=== PATIENT | male | born 1950 | race Caucasian/White ===

== ENCOUNTER 2020-01-18 10:54 | Emergency (ER) | payer MEDICARE, OTHER ==
[2020-01-18] MEDS ORDERED: Sodium Chloride 0.9% 10 ML Syringe FLUSH PRN (12:06)
--- NOTE | 2020-01-18 12:10 | EDM.PDOC ---
ED HPI GENERAL MEDICAL PROBLEM - General Chief Complaint: Abdominal Pain Stated Complaint: UPPER STOMACH PAIN Time Seen by Provider: 01/18/20 11:14 Source of Information: Reports: Patient, RN Notes Reviewed History Limitations: Reports: No Limitations - History of Present Illness INITIAL COMMENTS - FREE TEXT/NARRATIVE: 69-year-old gentleman presents emergency department with a complaint of abdominal pain, he has had abdominal pain on and off for the last 2 months however last night it got particularly severe he cannot relate it to any food makes no difference the pain does wax and wane makes no difference if he is exerting himself or resting he has followed up with his primary care who was doing watchful waiting at this time. However the pain was so intense last night rated a 10 out of 10 he elected to present to the emergency department this morning. No nausea vomiting still passing gas does have a past surgical history of cholecystectomy and hernia repair pain is predominantly in the left upper quadrant Abdomen Pain Score (Numeric/FACES): 6 - Related Data Allergies Allergy/AdvReac Type Severity Reaction Status Date / Time Daemsyz-Hro-Iad Reductase Allergy Cannot Verified 01/18/20 11:38 Inhibitor Remember Home Meds: Home Meds Cyanocobalamin (Vitamin B-12) [B-12] 2 tab PO DAILY 01/18/20 [History] Levothyroxine 200 mg PO DAILY 01/18/20 [History] carvediloL [Carvedilol] 1 tab PO BID 01/18/20 [History] Past Medical History Cardiovascular History: Reports: Hypertension Gastrointestinal History: Reports: Diverticulosis Genitourinary History: Reports: Prostate Disorder Endocrine/Metabolic History: Reports: Hypothyroidism Oncologic (Cancer) History: Reports: Prostate - Past Surgical History Head Surgeries/Procedures: Reports: None Cardiovascular Surgical History: Reports: None GI Surgical History: Reports: Cholecystectomy, Hernia Repair/Other Male Surgical History: Reports: Prostatectomy Endocrine Surgical History: Reports: Thyroidectomy Oncologic Surgical History: Reports: None Dermatological Surgical History: Reports: None Social & Family History - Tobacco Use Smoking Status *Q: Never Smoker - Caffeine Use Caffeine Use: Reports: Coffee, Soda - Recreational Drug Use Recreational Drug Use: No ED ROS GENERAL - Review of Systems Review Of Systems: See Below Constitutional: Reports: No Symptoms HEENT: Reports: No Symptoms Respiratory: Reports: No Symptoms Cardiovascular: Reports: No Symptoms GI/Abdominal: Reports: Abdominal Pain, Flatus. Denies: Constipation, Diarrhea, Nausea, Vomiting : Reports: No Symptoms Musculoskeletal: Reports: No Symptoms ED EXAM, GI/ABD - Physical Exam Exam: See Below Exam Limited By: No Limitations General Appearance: Alert, WD/WN, No Apparent Distress Respiratory/Chest: No Respiratory Distress, Lungs Clear, Normal Breath Sounds, No Accessory Muscle Use, Chest Non-Tender Cardiovascular: Regular Rate, Rhythm, No Murmur GI/Abdominal Exam: Normal Bowel Sounds, Soft, No Organomegaly, No Distention, Tender (Tender left upper quadrant) Course - Vital Signs Last Recorded V/S: Last Vital Signs Temp 97.6 F 01/18/20 11:36 Pulse 65 01/18/20 11:36 Resp 16 01/18/20 11:36 BP 186/89 H 01/18/20 11:51 Pulse Ox 97 01/18/20 11:36 - Orders/Labs/Meds Orders: Active Orders 24 hr Category Date Time Status Peripheral IV Care [RC] . DIRECTED Care 01/18/20 12:06 Active Sodium Chloride 0.9% [Normal Saline] 1,000 ml Med 01/18/20 12:15 Active IV ASDIRECTED Sodium Chloride 0.9% [Normal Saline] 100 ml Med 01/18/20 12:30 Active IV ASDIRECTED Sodium Chloride 0.9% [Saline Flush] Med 01/18/20 12:06 Active 10 ml FLUSH ASDIRECTED PRN Peripheral IV Insertion Adult [OM.PC] Urgent Oth 01/18/20 12:06 Ordered Medication Orders Sodium Chloride (Normal Saline) 1,000 mls @ 999 mls/hr IV ASDIRECTED CINDY Last Admin: 01/18/20 12:46 Dose: 999 mls/hr Documented by: ELVIS Sodium Chloride (Normal Saline) 100 mls @ 3 mls/sec IV ASDIRECTED CINDY Last Admin: 01/18/20 14:06 Dose: 3 mls/sec Documented by: PEE Sodium Chloride (Saline Flush) 10 ml FLUSH ASDIRECTED PRN PRN Reason: Keep Vein Open Last Admin: 01/18/20 14:06 Dose: 10 ml Documented by: PEE Labs: Laboratory Tests 01/18/20 01/18/20 01/18/20 Range/Units 12:18 12:18 12:18 WBC 7.5 (4.5-11.0) K/uL RBC 5.14 (4.30-5.90) M/uL Hgb 16.0 H (12.0-15.0) g/dL Hct 46.9 (40.0-54.0) % MCV 91 (80-98) fL MCH 31 (27-31) pg MCHC 34 (32-36) % Plt Count 173 (150-400) K/uL Neut % (Auto) 70 H (36-66) % Lymph % (Auto) 16 L (24-44) % [place] % (Auto) 12 H (2-6) % Eos % (Auto) 2 (2-4) % Baso % (Auto) 0 (0-1) % Sodium 141 (140-148) mmol/L Potassium 4.3 (3.6-5.2) mmol/L Chloride 105 (100-108) mmol/L Carbon Dioxide 28 (21-32) mmol/L Anion Gap 8.0 (5.0-14.0) mmol/L BUN 16 (7-18) mg/dL Creatinine 1.1 (0.8-1.3) mg/dL Est Cr Clr Drug Dosing 75.75 mL/min Estimated GFR (MDRD) > 60 (>60) Glucose 162 H (74-106) mg/dL Lactic Acid 1.3 (0.4-2.0) mmol/L Calcium 9.0 (8.5-10.1) mg/dL Total Bilirubin 0.6 (0.2-1.0) mg/dL AST 14 L (15-37) U/L ALT 26 (12-78) U/L Alkaline Phosphatase 102 (46-116) U/L Troponin I < 0.017 (0.000-0.056) ng/mL Total Protein 6.9 (6.4-8.2) g/dL Albumin 3.9 (3.4-5.0) g/dL Globulin 3.0 (2.3-3.5) g/dL Albumin/Globulin Ratio 1.3 (1.2-2.2) Lipase 371 (73-393) U/L Urine Color (YELLOW) Urine Appearance (CLEAR) Urine pH (5.0-8.0) Ur Specific [place] (1.008-1.030) Urine Protein (NEGATIVE) mg/dL Urine Glucose (UA) (NEGATIVE) mg/dL Urine Ketones (NEGATIVE) mg/dL Urine Occult Blood (NEGATIVE) Urine Nitrite (NEGATIVE) Urine Bilirubin (NEGATIVE) Urine Urobilinogen (0.2-1.0) EU/dL Ur Leukocyte Esterase (NEGATIVE) Urine RBC (0-5) Urine WBC (0-5) Ur Epithelial Cells Urine Bacteria 01/18/20 Range/Units 13:48 WBC (4.5-11.0) K/uL RBC (4.30-5.90) M/uL Hgb (12.0-15.0) g/dL Hct (40.0-54.0) % MCV (80-98) fL MCH (27-31) pg MCHC (32-36) % Plt Count (150-400) K/uL Neut % (Auto) (36-66) % Lymph % (Auto) (24-44) % [place] % (Auto) (2-6) % Eos % (Auto) (2-4) % Baso % (Auto) (0-1) % Sodium (140-148) mmol/L Potassium (3.6-5.2) mmol/L Chloride (100-108) mmol/L Carbon Dioxide (21-32) mmol/L Anion Gap (5.0-14.0) mmol/L BUN (7-18) mg/dL Creatinine (0.8-1.3) mg/dL Est Cr Clr Drug Dosing mL/min Estimated GFR (MDRD) (>60) Glucose (74-106) mg/dL Lactic Acid (0.4-2.0) mmol/L Calcium (8.5-10.1) mg/dL Total Bilirubin (0.2-1.0) mg/dL AST (15-37) U/L ALT (12-78) U/L Alkaline Phosphatase (46-116) U/L Troponin I (0.000-0.056) ng/mL Total Protein (6.4-8.2) g/dL Albumin (3.4-5.0) g/dL Globulin (2.3-3.5) g/dL Albumin/Globulin Ratio (1.2-2.2) Lipase (73-393) U/L Urine Color Yellow (YELLOW) Urine Appearance Clear (CLEAR) Urine pH 5.5 (5.0-8.0) Ur Specific [place] >= 1.030 (1.008-1.030) Urine Protein Negative (NEGATIVE) mg/dL Urine Glucose (UA) Negative (NEGATIVE) mg/dL Urine Ketones Negative (NEGATIVE) mg/dL Urine Occult Blood Trace-intact H (NEGATIVE) Urine Nitrite Negative (NEGATIVE) Urine Bilirubin Negative (NEGATIVE) Urine Urobilinogen 0.2 (0.2-1.0) EU/dL Ur Leukocyte Esterase Negative (NEGATIVE) Urine RBC Not seen (0-5) Urine WBC Not seen (0-5) Ur Epithelial Cells Not seen Urine Bacteria Not seen Meds: Medications Generic Name Dose Route Start Last Admin Trade Name Freq PRN Reason Stop Dose Admin Sodium Chloride 1,000 mls @ 999 mls/hr 01/18/20 12:15 01/18/20 12:46 Normal Saline IV 999 mls/hr ASDIRECTED CINDY Administration Sodium Chloride 100 mls @ 3 mls/sec 01/18/20 12:30 01/18/20 14:06 Normal Saline IV 3 mls/sec ASDIRECTED CINDY Administration Sodium Chloride 10 ml 01/18/20 12:06 01/18/20 14:06 Saline Flush FLUSH 10 ml ASDIRECTED PRN Administration Keep Vein Open Discontinued Medications Generic Name Dose Route Start Last Admin Trade Name Freq PRN Reason Stop Dose Admin Iopamidol 150 ml 01/18/20 12:30 01/18/20 14:06 Isovue-300 (61%) IV 150 ml . DIRECTED CINDY Administration Sodium Chloride 10 ml 01/18/20 12:22 01/18/20 12:46 Saline Flush FLUSH 01/18/20 12:23 10 ml ONETIME ONE Administration Departure - Departure Time of Disposition: 14:53 Disposition: Home, Self-Care 01 Condition: Fair Clinical Impression: Pancreatic mass Pancreatitis Qualifiers: Chronicity: chronic Pancreatitis type: unspecified pancreatitis type Qualified Code(s): K86.1 - Other chronic pancreatitis - Discharge Information Instructions: Chronic Pancreatitis, Acute Pancreatitis, [id number] Referrals: Ted Rae NP [Primary Care Provider] - Forms: ED Department Discharge Additional Instructions: Please follow-up with your primary care for further evaluation of the mass in the pancreas, recommend clear liquid diet for the next couple days avoid fatty foods and alcohol, call return to the emergency department worsening of symptoms Sepsis Event Note (ED) - Evaluation Sepsis Screening Result: No Definite Risk - Focused Exam Vital Signs: Vital Signs Temp Pulse Resp BP Pulse Ox 01/18/20 11:51 186/89 H 01/18/20 11:36 97.6 F 65 16 208/100 H 97 01/18/20 11:10 97.6 F 65 16 208/100 H 97 - My Orders Last 24 Hours: My Active Orders 01/18/20 12:06 Peripheral IV Care [RC] . DIRECTED Sodium Chloride 0.9% [Saline Flush] 10 ml FLUSH ASDIRECTED PRN Peripheral IV Insertion Adult [OM.PC] Urgent 01/18/20 12:15 Sodium Chloride 0.9% [Normal Saline] 1,000 ml IV ASDIRECTED 01/18/20 12:30 Sodium Chloride 0.9% [Normal Saline] 100 ml IV ASDIRECTED - Assessment/Plan Last 24 Hours: My Active Orders 01/18/20 12:06 Peripheral IV Care [RC] . DIRECTED Sodium Chloride 0.9% [Saline Flush] 10 ml FLUSH ASDIRECTED PRN Peripheral IV Insertion Adult [OM.PC] Urgent 01/18/20 12:15 Sodium Chloride 0.9% [Normal Saline] 1,000 ml IV ASDIRECTED 01/18/20 12:30 Sodium Chloride 0.9% [Normal Saline] 100 ml IV ASDIRECTED Plan: Assessment Acuity = acute Site and laterality = pancreatitis Etiology = unknown Manifestations = abdominal pain Location of injury = Home Lab values = CBC, CMP, troponin, lipase all within normal limits CT scan describe acute pancreatitis above however there is a mass in the pancreas of undetermined etiology Plan I did provide him lab work results as well as a handout of his CT scan he is can follow-up with his primary care for further evaluation of the mass in the pancreas This note was dictated using [employer] voice recognition software please call with any questions on syntax or grammar.
[2020-01-18] MEDS ORDERED: Sodium Chloride 0.9% 1,000 ML IV SCH (12:15)
[2020-01-18] MEDS ORDERED: Sodium Chloride 0.9% 10 ML Syringe FLUSH ONE (12:22)
[2020-01-18] MEDS ORDERED: Iopamidol 612 MG/ML 150 ML Bottle IV SCH (12:30)
[2020-01-18] MEDS ORDERED: Sodium Chloride 0.9% 100 ML IV SCH (12:30)
--- NOTE | 2020-01-18 14:23 | CRLCT ---
INDICATION: Left upper quadrant pain. TECHNIQUE: CT of abdomen and pelvis performed after IV injection of 150 mL of Isovue-300. FINDINGS: Prominent degenerative and hypertrophic changes in the spine. Moderate osteopenia. Chronic irregularity involving the upper iliac bones laterally. Moderate degenerative arthritis hips. Mild atelectasis and scarring in the lung bases. Moderate size cyst dome of the liver. Small low-density rounded solid lesion in the central liver just anterior to the portal hilum on image 30 measures 1.5 cm. Although this could be related to a more rounded than typical area of focal fatty infiltration, a solid lesion such as a neoplasm or metastasis cannot be excluded. Comparison with any available previous CT exams or followup MRI using liver mass protocol will be helpful in determining if this is a area of focal fatty infiltration or lesion. Additional small cyst in the left hepatic lobe. Small nodular density arising from the posterior right hepatic lobe on image 48 nonspecific. Mild fatty infiltration of liver. Cholecystectomy without biliary dilatation. Calcified splenic granulomas consistent with prior granulomatous disease. Small to moderate-size cysts in both kidneys. Mild inflammatory stranding and trace amounts of fluid about the pancreatic body and tail consistent with acute pancreatitis. Focally in the pancreatic body there is a bulbous low-density area measuring 3.3 cm on images 37-39. Underlying mass including a neoplasm resulting in pancreatitis cannot be excluded and should be excluded with follow-up evaluation imaging. Alternative diagnosis would be that this is an area of developing pancreatic necrosis. Suggest correlation with lipase to confirm pancreatitis and followup imaging or endoscopic ultrasound to exclude a mass in this region. Splenic vein is somewhat narrowed at the level of the low-density focus in the pancreatic body. Small to mildly prominent lymph nodes in the mid and upper abdomen nonspecific. Small to moderate-sized fat containing right inguinal hernia. Small left inguinal hernia. Colonic diverticulosis. Bladder wall is moderately thickened but the bladder is not well-distended. Postsurgical changes in the mid and lower pelvis consistent with prostatectomy and pelvic lymph node dissection. Moderate amount of stool in the colon. Appendix is normal. Remainder negative. IMPRESSION: 1. CT findings consistent with acute pancreatitis involving the pancreatic body and tail. Indeterminate 3.3 cm low-density masslike area in the pancreatic body could be a mass such as a pancreatic neoplasm resulting in pancreatitis or alternatively could be an area of early developing pancreatic necrosis or edema. Followup evaluation recommended to exclude a mass in this region. The splenic vein is narrowed in the region of the masslike focus in the pancreatic body. 2. Prostatectomy and pelvic lymph node dissection. Bladder wall thickening likely related incomplete distention. 3. Cholecystectomy without biliary dilatation. 4. 1.5 cm rounded low-density solid area in the central liver. Cannot exclude an indeterminate solid lesion including neoplasm or metastasis. This is more rounded than typically seen for focal fatty infiltration although this diagnosis remains a possibility. Suggest MRI of the liver to distinguish between the 2 possibilities described as etiologies. Small nodular solid area of density arising from the posterior right hepatic lobe likely benign. 5. Colonic diverticulosis. 6. Bilateral inguinal hernias greater on the right. Other findings as above. Please note that all CT scans at this facility use dose modulation, iterative reconstruction, and/or weight-based dosing when appropriate to reduce radiation dose to as low as reasonably achievable. Dictated by David Ann MD @ Jan 18 2020 2:12PM Signed by Dr. David Ann @ Jan 18 2020 2:22PM
== END 2020-01-18 15:12 | disposition home or self-care (01) ==
LOC: EDBD 10:54 → JP.ED 10:54
DX: K86.1 Other chronic pancreatitis (principal); K86.89 Other specified diseases of pancreas; I10 Essential (primary) hypertension; E03.9 Hypothyroidism, unspecified; Z79.899 Other long term (current) drug therapy
CPT/HCPCS: 36415; 74177; 80053; 81001; 83605; 83690; 84484; 85025; 99284; J7030; J7050; Q9967